=== PATIENT | female | born 1960 | race Caucasian/White ===

== ENCOUNTER 2017-04-30 19:43 | Emergency (ER) | payer OTHER ==
[~2017-04-30] VITALS: Ht 165.1 cm; Wt 60.1 kg
[2017-04-30 19:46] VITALS: BP 118/74
[2017-04-30] MEDS ORDERED: DIPH,PERTUSS(ACELL),TET VAC/PF 0.5 ML IM-VACC ONE ×2 (20:18→20:30)
== END 2017-04-30 20:54 | disposition home or self-care (01) ==
LOC: ED 20:30
DX: T24.202A Burn of second degree of unspecified site of left lower limb, except ankle and foot, initial encounter (principal); T79.9XXA Unspecified early complication of trauma, initial encounter; X17.XXXA Contact with hot engines, machinery and tools, initial encounter; Y93.55 Activity, bike riding; Y99.8 Other external cause status; Y92.89 Other specified places as the place of occurrence of the external cause
CPT/HCPCS: 90471; 90715